=== PATIENT | male | born 1980 | race Caucasian/White ===

== ENCOUNTER 2018-07-13 05:37 | Emergency (ER) | payer OTHER ==
[~2018-07-13] VITALS: Ht 172.7 cm; Wt 83.9 kg
[2018-07-13] MEDS ORDERED: TOBREX5 ML OPHTHALMIC (06:04)
[2018-07-13] MEDS ORDERED: NORCO 5-325 TA1 EACH PO (06:04)
[2018-07-13 06:11] VITALS: BP 118/76
== END 2018-07-13 06:12 | disposition home or self-care (01) ==
LOC: ER 05:37
DX: S05.02XA Injury of conjunctiva and corneal abrasion without foreign body, left eye, initial encounter (principal); H10.9 Unspecified conjunctivitis; Z88.0 Allergy status to penicillin; X58.XXXA Exposure to other specified factors, initial encounter; Y92.89 Other specified places as the place of occurrence of the external cause; Y93.89 Activity, other specified; Y99.8 Other external cause status